=== PATIENT | male | born 1990 | race Caucasian/White ===

== ENCOUNTER → 2017-07-24 | Outpatient (CLI) | payer OTHER ==
[~2017-07-24] MED LIST: AUGMENTIN875 M1 OR; IBUP-1428 PO; [UNRECOGNIZED DRUG - CODE] PO
--- NOTE | 2017-07-25 05:28 | PAP/PSG TECHNICIAN REPORT ---
[facility] Manager Performance Improvement Polysomnogram Report Study name: None Report date: 07/25/2017 Study date: 07/24/2017 Referring Physician: Keiko SCALES M.D. Name: KATY FELDER Interpreting Physician: iDna Scales M.D. Date of : 1990 Manager Performance Improvement: Felix Casillas RPSGT. Sex: Male Age: 27 StudyType: PSG Weight: 339 lbs 17.5 inches Height: 27 years, Height 6' 4" Neck Circum: BMI: 41.26 Medications: LISINOPRIL 40 MG, RITALIN 20 MG, ZOLOFT 100 MG Patient History PATIENT HAS HISTORY OF HYPERTENSION, FATIGUE AND SNORING. ALSO HAS HISTORY OF WITNESSED APNEAS AND MORNING HEADACHES. HE IS HERE TODAY FOR AN EVALUATION FOR [facility]. ESS = 8 RM 2 Parameters Monitored NPSG: E1-M2, E2-M1, Fp1-M2, Fp2-M1, F3-M2, F4-M2, F4-M1, C3-M2, C4-M2, C4-M1, O1-M2, O2-M2, O2-M1, T3-M2, T4-M1, P3-M2, P4-M1, CHIN1, CHIN2, HR, EKG, Legs, PFLOW, SNOR, FLOW, CFLOW, Tidal Volume, THOR, ABDO, SpO2, PLTH, CPRESS, ETCO2 Wave, ETCO2, pH Sleep Architecture Sleep Stages Time at Lights Off 9:20:40 PM STAGES Time (min.) TST (%) Time at Lights On 5:00:40 AM Wake 46.0 -- Total Recording Time (TRT) 460.50 min. N1 10.5 3 Total Sleep Period (TSP) 438.0 min. N2 250.0 60 Total Sleep Time (TST) 414.0min. N3 100.5 24 Awake Time 46.5 min. REM 53.0 13 Wake after Sleep Onset 33.5 min. Sleep Efficiency (SE) 90 % Sleep Onset Latency (REED) 12.5 min. Number of Stage 1 Shifts None Awakenings 25 Stage Changes 89 Number of REM periods 2 REM 53.0 13 REM Latency 188.5 min. NREM 361.0 87 Body Position Analysis Supine Right Left Side Prone Vertical Total Sleep Time (min.) 117.6 149.7 155.7 305.47 11.7 0.0 Total Sleep Time (%) 24% 36% 38% 74 3% N/A% Total Sleep Time REM (min.) 0.0 32.5 20.5 None 0.0 0.0 Total Sleep Time NREM (min.) 98.0 117.2 135.2 None 10.5 0.0 Intermittent Wake (min.) 19.6 3.4 21.9 None 1.1 0.0 Total Sleep Period (%) 26% None None None None None Arousals Myoclonus (PLM) * Events Count Index Events Count Index Spontaneous 58 8 Events Awake (PLMW) 34 44.3 Respiratory 3 0.6 Events Asleep w/ Arousal (PLMA) 5 0.7 PLM 4 1 Events Asleep w/o Arousal (PLMS) 95 13.8 Snoring 6 1 Total Asleep 100 14.5 Total 71 10 Total 134 17 Respiratory Analysis * CA OA MA CH H RERA Total Count 0 0 0 0 77 4 77 Index 0.0 0.0 0.0 0 11.2 1 11.7 Mean Duration 0.0 0.0 0.0 0.00 19.2 17.2 19.1 Longest Duration 0.0 0.0 0.0 0.00 0.0 19.0 33.2 Respiratory Event Summary Total Supine ~Supine Right Left Prone REM NREM Apneas Count 0 0 0 0 0 0 0 0 Index 0.0 0 0 0.0 0.0 0 0 0 Hypopneas (4% Desat) Count 77 40 37 17 17 3 9 68 Index 11.2 24.5 7 6.8 6.5 17.1 10.2 11.3 Apneas & All Hypopneas Count 77 40 37 17 17 3 9 68 Index 11.2 24 7 7 7 17 10.2 11.3 Respiratory Events ([place] Operator+All Hyp+RERA) Count 77 40 41 17 21 3 9 68 Index 11.7 24 8 6.8 8.1 17.1 10.2 12.0 Respiratory Related Arousal Count 3 40 2 0 2 0 0 4 Index 0.6 1 0 0 1 0 0 1 Snoring Analysis Supine Right Left Prone REM NREM Total Snore duration 16.2 min Snores count 180 210 576 16 64 918 982 Snore mean duration 1.0 Sec Snores index 110 84 222 91 72.5 152.6 142.3 TST with snoring (%) 3.9% Desaturation Event Summary: Minimum %SpO2 Event Count Mean/Min/Max Duration(sec.) Desaturation Index % Time In Bed > 90 81 32.4 / 12.3 / 60.0 12.0 91.6 86 - 90 2 14.6 / 12.3 / 17.0 3.4 8.0 81 - 85 0 N/A 0.0 0.3 76 - 80 0 N/A 0.0 0.0 71 - 75 0 N/A 0.0 0.0 66 - 70 0 N/A 0.0 0.0 61 - 65 0 N/A 0.0 0.0 56 - 60 0 N/A 0.0 0.0 51 - 55 0 N/A 0.0 0.0 < 50 0 N/A 0.0 0.0 Total REM NREM Awake <50% 0.0 min. 0.0 min. 0.0 min. 0.0 min. 51 - 60% 0.1 min. 0.0 min. 0.1 min. 0.0 min. 61 - 70% 0.0 min. 0.0 min. 0.0 min. 0.0 min. 71 - 80% 0.2 min. 0.0 min. 0.0 min. 0.2 min. 81 - 90% 36.8 min. 1.3 min. 33.8 min. 1.7 min. 91 - 100% 404.7 min. 51.5 min. 318.4 min. 34.7 min. Average 93 92 92 93 Minimum SpO2 56 90 56 66 Desaturation Event Index 10.6 10.2 11.6 3.9 # Desat. Events below 89% 26 N/A 25 1 Time(%) with Saturation below 89% 1.9 0.0 1.6 0.2 Time(min.) with Saturation below 89% 8.3 0.0 7.2 1.1 Time (mins) REM (mins) NREM (mins) % of TST SpO2 Below 90% 49 1 N48 4.0 SpO2 Below 88% 12 0 0 1 Heart Rate Analysis Min (bpm) Max (bpm) Average (bpm) Awake 37 102 71 NREM 41 92 63 REM 53 85 67 Overall 41 92 64 Supplemental O2 Values Minimum O2 level: None Value Start Time End Time Manager Performance Improvement Comments Mr. Felder slept in the right, left, supine and prone positions. No cardiac arrhythmia noted. Leg movements noted. Bruxism noted. Snoring was noted and scored as a 4 on a scale of 1 through 5. (0=no snoring, 5=snoring loud enough to be heard through a closed door or down the samayoa way) Mr. Felder awoke to use the restroom 2 times during the night. Mr. Felder stated I slept as well as I do when I am in my own bed. The final report will be interpreted and signed by a sleep physician. The completed physician report will then be placed in the patient medical record. Therapy (cm H2O) 0 TIB (min.) 460.0 TST (min.) 414.0 Sleep Onset (min.) 12.5 REM Onset From Sleep (min.) 188.5 Sleep Efficiency % 90 Wakefulness (%) 10 Wakefulness (min.) 46.5 NREM 1 (%) 3 NREM 1 (min.) 10.5 NREM 2 (%) 60 NREM 2 (min.) 250.0 NREM 3 (%) 24 NREM 3 (min.) 100.5 REM (%) 13 REM (min.) 53.0 # Arousals 71 Arousal Index 10 # Snore 982 Snore Index 142.3 AHI 11.2 AHI Supine 24 AHI Non-Supine 7 NREM AHI 11.3 REM AHI 10.2 RDI 11.7 # Obstructive Apnea 0 # Central Apnea 0 # Mixed Apnea 0 # Hypopneas 77 RERAs 4 Total Respiratory Events 82 Time Below SpO2 89% (min.) 7.2 Mean NREM SpO2 (%) 92 Mean REM SpO2 (%) 92 Mean Sleep SpO2 (%) 92 Min NREM SpO2 (%) 56 Min REM SpO2 (%) 90 Position Supine (min.) 117.6 Position Non-supine (min.) 316.0 LM Index Sleep 14.5 LM Index NREM 16.1 LM Index REM 3.4 Mean Heart Rate (bpm) 64 Min Heart Rate (bpm) 41
--- NOTE | 2017-07-31 09:36 | POLYSOMNOGRAPH REPORT ---
REFERRING PERSON: Dr. Cindi Scales. REVIVAL CLERK: Felix Casillas. Mr. Sebastian is a 27-year-old male who has hypertension, fatigue and snoring. He has a history of witnessed apneas and morning headaches. His [place] sleepiness scale score on the evening of this study is 8. BMI is 41.26. Following the technical and digital specifications of the [place] [employer] (AASM) a standard diagnostic polysomnogram was performed monitoring EEG, EOG, EMG (chin and leg deviations), oxygen saturation, body position, digital video, respiratory effort and airflow. The sleep Stage and event scoring was based on the AASM Manual for the Scoring of Sleep and Associated Events 2007 edition. Apneas are defined as a drop in the peak thermal sensor excursion by >90% of baseline for at least 10 seconds. Hypopneas were scored using the 4% oxygen desaturation rule (4A-[employer]) and a decrease in the nasal pressure excursions by >30% of baseline for at least 10 seconds. Respiratory effort-related arousal (RERA's) is defined as a sequence of breaths lasting at least 10 seconds characterized by increasing respiratory effort or flattening of the nasal pressure waveform leading to an arousal from sleep when the sequence of breaths does not meet criteria for an apnea or hypopnea. Apnea Hypopnea index (AHI) is defined as the number of apneas and hypopneas occurring in an hour of sleep. Respiratory disturbance index (RDI) is defined as the number of apneas, hypopneas, and RERA's occurring in an hour of sleep. Mr. Pace total sleep period time was 438 minutes. Total sleep time was 414 minutes. Sleep efficiency was 90%. Latency to sleep onset was 12.5 minutes with wake after sleep onset of 33.5 minutes. Total non-REM sleep time was 361 minutes. He spent 3% of that time in N1 sleep, 60% in N2 sleep and 24% in N3 sleep. REM latency was 188.5 minutes. Total REM sleep time was 53 minutes or 13% of total sleep time. There were 71 cortical arousals from sleep. 58 of these arousals were spontaneous, 3 were due to respiratory events, 4 due to periodic limb movements of sleep and 6 were due to snoring. There were 100 periodic limb movements noted on this test. Limb movement index was 14.5. Limb movement with arousal index was 0.7. There were no central obstructive or mixed apneas on this test. There were 77 hypopnea and 4 RERA. Apnea-hypopnea index was 11.2 consistent with mild sleep apnea. Supine AHI was 24 and REM AHI was 10.2. There were 982 snoring events recorded on this test. Total sleep time with snoring was 3.9%. Mean saturation was 93% with desaturations less than 89% for 8.3 minutes of recorded time. This is mild nocturnal hypoxemia. There was no cardiac ectopy noted on this study. Heart rates during sleep ranged from a low of 41 beats per minute to a high of 92 beats per minute. IMPRESSION AND PLAN: A 27-year-old male with evidence of mild sleep apnea and mild nocturnal hypoxemia on this sleep study. 1. This patient would likely benefit from positive airway pressure therapy. He should return to sleep lab for a full night titration and then based on those results, be started on equipment at home. A download from his machine can be reviewed in 1 month both to check compliance as well as AHI and further pressure adjustments can occur at that time. 2. Alternatively, this patient could be started on auto titrating CPAP at home with pressures of 5-15 cm. A download after 1 month can be reviewed and the patient can be set to optimal pressure. Given the small degree of hypoxemia noted on this test, I suspect this will go away with treatment of his sleep disordered breathing. 3. Should this patient be unwilling or unable to tolerate CPAP therapy, he should be referred to ear, nose and throat or oral surgery/dental medicine to discuss alternative treatments for sleep disorder breathing.
== END | disposition home or self-care (01) ==
LOC: C.NEUR 20:00
PROVIDERS: ATTEND Family Medicine
DX: G47.33 Obstructive sleep apnea (adult) (pediatric) (principal)